=== PATIENT | female | born 1990 | race Caucasian/White ===

== ENCOUNTER 2019-12-23 10:15 | Emergency (ER) | payer MEDICAID, OTHER ==
[~2019-12-23] VITALS: Ht 160 cm; Wt 70.0 kg
[2019-12-23 10:25] VITALS: BP 115/72
[2019-12-23] MEDS ORDERED: TETANUS, DIPHTHERIA, PERTUSSIS VAC/PF 0.5ML (>7YR OLD) IM ONE (11:30)
[2019-12-23] MEDS ORDERED: IBUPROFEN 600MG TABLET PO ONE (11:30)
[2019-12-23] MEDS ORDERED: BACITRACIN ZINC OINT UDPKT TOP ONE ×2 (11:30→11:45)
== END 2019-12-23 12:29 | disposition home or self-care (01) ==
LOC: ER 10:38
DX: S01.01XA Laceration without foreign body of scalp, initial encounter (principal); W18.2XXA Fall in (into) shower or empty bathtub, initial encounter; Y93.E1 Activity, personal bathing and showering; Y92.031 Bathroom in apartment as the place of occurrence of the external cause; Z23 Encounter for immunization
CPT/HCPCS: 90471; 90715; 99284